=== PATIENT | male | born 1960 | race Caucasian/White ===

== ENCOUNTER 2016-09-10 12:17 | Inpatient (IN) ==
[2016-09-10 13:39] LABS: Basophils % 0.6 % (0.0-0.8); Eosinophils # 0.1 10*3/uL (0.0-0.87); Eosinophils % 2.3 % (0.00-10.9); Hematocrit 45.5 VOL% (42.0-52.0); Hemoglobin 16.7 GM/DL (14.0-18.0); Immature Granulocytes % 0.6 %; Immature Granulocytes Absolute 0.03 #; Lymphocytes # 0.9 10*3/uL (1.4-4.0); Mean Corpuscular HGB Conc 36.7 GM/DL (32-36); Mean Corpuscular Hemoglobin 33 PG (27-34); Mean Corpuscular Volume 90.5 FL (87-102); Mean Platelet Volume 11.1 FL (9.6-12.0); Monocytes # 0.7 10*3/uL (0.11-0.8); Monocytes % 12.9 % (1.7-12.7); Neutrophils # 3.5 10*3/uL (1.4-7.4); Neutrophils % 66.6 % (38.7-73.9); Platelet Count 159 T/CUMM (130-400); Red Blood Count 5.03 MC/CUMM (3.8-5.5); Red Cell Distribution Width 13.5 % (9.3-17.3); White Blood Count 5.2 T/CUMM (4-12)
[2016-09-10 13:40] LABS: Ammonia 40 UMOL/L (11-32)
[2016-09-10 13:44] LABS: Alanine Aminotransferase 644 U/L (16-61); Albumin 4.1 G/DL (3.4-5.0); Alkaline Phosphatase 324 U/L (45-117); Aspartate Amino Transferase 359 U/L (0-37); Blood Urea Nitrogen 12 MG/DL (7-18); Calcium 9.1 MG/DL (8.5-10.1); Glucose 167 MG/DL (74-106); Lactic Acid 2.6 MMOL/L (0.4-2.0); Potassium 4.1 MMOL/L (3.5-5.1); Sodium 136 MMOL/L (136-145); Total Protein 6.9 G/DL (6.4-8.3); Troponin I Only < 0.015 NG/ML (0.00-0.045)
--- NOTE | 2016-09-10 14:07 | Ultrasound Report ---
US gallbladder Indication: Epigastric pain. Jaundice. ULTRASOUND ABDOMEN, limited Comparison: None Findings: Liver: Diffusely echogenic and contour are normal size. No focal lesion identified. Focal fat sparing adjacent to gallbladder noted. Gallbladder: Mobile multiple gallstones and sludge fill the gallbladder lumen, and the wall is edematous and thickened. Positive sonographic Weber sign. Common bile duct: 5 mm Pancreas: Majority obscured by bowel gas Right kidney: 12.7 cm length. No mass, cyst, calcification or obstruction Impression: 1. Cholelithiasis with secondary findings of cholecystitis. 2. Fatty infiltration of the liver. PROCEDURE INTERPRETED AT [facility] DEPARTMENT OF RADIOLOGY Final Report Signed by: Scott Rowland M.D.
--- NOTE | 2016-09-10 14:08 | XRay Report ---
XR chest 1V portable Indication: Epigastric abdominal pain. Chest one view: No comparison. Heart size is normal. Mediastinal contour is unremarkable. Right hemidiaphragm is elevated. There is mild atelectasis. No focal infiltrates. Impression: Elevated right hemidiaphragm with atelectasis. PROCEDURE INTERPRETED AT [facility] DEPARTMENT OF RADIOLOGY Final Report Signed by: Scott Rowland M.D.
[2016-09-10 14:13] LABS: INR 1.1; PT Patient Result 11.2 SECS; Partial Thromboplastin Time 27.1 SECS (0-40)
[2016-09-10] MEDS ORDERED: ALUM/MAG/SIMETH/LIDO VISC 1:1 30 ML BOTTLE PO STA (17:33)
[2016-09-10] MEDS ORDERED: MORPHINE 2 MG/1 ML SYRINGE IV PRN (17:33)
[2016-09-10] MEDS ORDERED: SODIUM CHLORIDE 0.9% 1,000 ML IV STA ×2 (17:33)
[2016-09-10] MEDS ORDERED: ONDANSETRON 4 MG/2 ML VIAL IV PRN (17:33)
[2016-09-10] MEDS: DEXTROSE 5% NACL 0.9% 1,000 ML IV SCH (18:29)
[2016-09-10] MEDS: PANTOPRAZOLE 40 MG VIAL IV SCH (18:29)
[2016-09-10] MEDS: PIPERACILLIN/TAZOBACTAM 3,375 MG in SODIUM CHLORIDE 0.9% 100 ML IV SCH (18:37)
--- NOTE | 2016-09-10 19:36 | General Surgery Consult Note ---
Assessment and Plan - Time spent with patient Time spent with patient: Less than 30 minutes (1) Gall stone pancreatitis Status: Acute Assessment and plan: Impression: 1. Gallstone pancreatitis 2. Obstructive jaundice secondary to choledocholithiasis. 3. Cholecystitis with cholelithiasis. 4. Hypertension. Plan: 1. IV fluids and IV antibiotics at this time. 2. Get a CT scan abdomen and pelvis be sure there is nothing going on in the head of pancreas 3. Will get GI to see for the purpose of an ERCP 4. Plan and hope to be able to remove the gallbladder laparoscopically if we can get the duct is cleared. Current Visit: Yes History of Present Illness Chief complaint: Pancreatitis with jaundice History of present illness: Mr. Benitez is a 56 year old male white who presents to the emergency room because of a weeklong episode of abdominal pain primarily epigastric in nature this is her of a constant ache. At the onset last week and this one did not seem to improve quickly like the episode he had about 2 months ago. He denies any fatty food intolerance but certainly noted that this episode occurred after he is what he describes as spicy food. He has had no unusual problems or other symptoms with this stomach over time. Came to the emergency room where he was found to have a bilirubin of 10 and an lipase of 700. He has stones on his gallbladder on ultrasound at this time. He is admitted his gallstone pancreatitis with common duct obstruction and choledocholithiasis. We will look at getting GI to see him for an ERCP. Following the ERCP we can set him up for a laparoscopic cholecystectomy. Home Medications Medication Instructions Recorded Confirmed Type Losartan Potassium 100 mg PO DAILY 09/10/16 09/10/16 History Metoprolol Succinate Xl [Toprol Xl] 50 mg PO BID 09/10/16 09/10/16 History amLODIPine [Norvasc] 5 mg PO BEDTIME 09/10/16 09/10/16 History clonazePAM [Clonazepam] 1 mg PO BID PRN 09/10/16 09/10/16 History hydroCHLOROthiazide 25 mg PO DAILY 09/10/16 09/10/16 History [Hydrochlorothiazide] Allergies Allergy/AdvReac Type Severity Reaction Status Date / Time No Known Allergies Allergy Verified 09/10/16 12:22 Medical,Surgical,& Family Hx - Medical History Cardio: History of: Hypertension Psychological: History of: Anxiety Disorders Gastrointestinal: History of: GERD - Social History Smoking Status: Never smoker Frequency of Alcohol Use: None Type of Drug Use: None Functional capacity: independent ambulation 12 point system: reviewed and no additional remarkable complaints except as stated Exam - Constitutional Vitals: Period Temp Pulse Resp BP Sys/Phillips Pulse Ox Last 24 Hr 97.4 F 94-98 16-18 108-112/74-82 95-98 General appearance: mild distress - Head Head exam: Present: normal inspection - ENT ENT exam: Present: normal exam - Neck Neck exam: Present: normal inspection - Respiratory Respiratory exam: Present: clear to auscultation bilaterally - Cardiovascular Cardiovascular exam: Present: RRR - GI/Abdominal GI/Abdominal exam: Present: hypoactive bowel sounds, tenderness (In the epigastrium right upper quadrant area.), soft, other (Scar at the umbilicus where hernia repair had been done). Absent: distended, mass - Extremities Exam Extremities exam: Present: normal inspection - Back Exam Back exam: Present: normal inspection - Neurological Exam Neurological exam: Present: alert, oriented X3, CN II-XII intact - Skin Skin exam: Present: normal color, warm, dry Results - Labs CBC & BMP: 09/10/16 13:07 09/10/16 13:07 Lab Results: I have reviewed the past 24 hour labs
[2016-09-10] MEDS: DOCUSATE SODIUM 100 MG CAPSULE PO SCH (20:49)
[2016-09-10] MEDS: METOPROLOL SUCCINATE XL 50 MG TABLET PO SCH (20:49)
[2016-09-10] MEDS: amLODIPine 5 MG TABLET PO SCH (20:49)
[2016-09-11] MEDS: PIPERACILLIN/TAZOBACTAM 3,375 MG in SODIUM CHLORIDE 0.9% 100 ML IV SCH ×3 (02:03→17:34)
[2016-09-11 04:11] LABS: Basophils % 0.5 % (0.0-0.8); Eosinophils # 0.2 10*3/uL (0.0-0.87); Eosinophils % 2.4 % (0.00-10.9); Hematocrit 40.7 VOL% (42.0-52.0); Hemoglobin 14.9 GM/DL (14.0-18.0); Immature Granulocytes % 0.3 %; Immature Granulocytes Absolute 0.02 #; Mean Corpuscular HGB Conc 36.6 GM/DL (32-36); Mean Corpuscular Hemoglobin 33 PG (27-34); Mean Corpuscular Volume 91.1 FL (87-102); Mean Platelet Volume 11.1 FL (9.6-12.0); Monocytes # 0.8 10*3/uL (0.11-0.8); Monocytes % 12.1 % (1.7-12.7); Neutrophils # 4.4 10*3/uL (1.4-7.4); Neutrophils % 68.7 % (38.7-73.9); Platelet Count 122 T/CUMM (130-400); Red Blood Count 4.47 MC/CUMM (3.8-5.5); Red Cell Distribution Width 13.7 % (9.3-17.3); White Blood Count 6.4 T/CUMM (4-12)
[2016-09-11 04:28] LABS: INR 1.1; PT Patient Result 11.2 SECS; Partial Thromboplastin Time 27.3 SECS (0-40)
[2016-09-11 05:01] LABS: Albumin 3.5 G/DL (3.4-5.0); Bilirubin,Total 10.9 MG/DL (0.2-1.0); Calcium 8.6 MG/DL (8.5-10.1); Osmolality,Calculated 277.5 MOS/KG (273-304); Potassium 2.9 MMOL/L (3.5-5.1); Total Protein 5.8 G/DL (6.4-8.3)
--- NOTE | 2016-09-11 07:37 | Family Practice History&Phys ---
Assessment and Plan (1) Gallstones Status: Acute Assessment and plan: 09/11/2016: Dr. Fajardo's been consulted. Current Visit: Yes (2) Gall stone pancreatitis Status: Acute Assessment and plan: 09/11/2016: GI will be consulted for ERCP. Current Visit: Yes History of Present Illness Chief complaint: Abdominal pain History of present illness: Mr. Benitez is a 56 year old male Patient 56-year-old white male tells me he has been having some abdominal pain off and on for the last several weeks. He is noticed that he has a lot of belching and feeling nauseated after meals. He started 2 days ago he started developing increasing abdominal pain and finally decided need to come to the emergency room. He has not had any fever or chills associated with this and has not seen any blood in his stools or melena. Patient did notice that his urine was turning dark and also noticed that his skin was turning yellow. He has never had anything like this before. Home Medications Medication Instructions Recorded Confirmed Type Losartan Potassium 100 mg PO DAILY 09/10/16 09/10/16 History Metoprolol Succinate Xl [Toprol Xl] 50 mg PO BID 09/10/16 09/10/16 History amLODIPine [Norvasc] 5 mg PO BEDTIME 09/10/16 09/10/16 History clonazePAM [Clonazepam] 1 mg PO BID PRN 09/10/16 09/10/16 History hydroCHLOROthiazide 25 mg PO DAILY 09/10/16 09/10/16 History [Hydrochlorothiazide] Allergies Allergy/AdvReac Type Severity Reaction Status Date / Time No Known Allergies Allergy Verified 09/10/16 12:22 - Constitutional Constitutional: Absent: chills, fatigue, fever(s), night sweats - EENT Eyes: Absent: blurry vision, loss of vision Ears: Absent: decreased hearing, ear pain Nose, mouth and throat: Absent: dysphagia, hoarseness, nasal congestion, sinus pressure, sore throat - Cardiovascular Cardiovascular: Absent: chest pain at rest, diaphoresis, dyspnea, dyspnea on exertion, orthopnea, palpitations - Respiratory Respiratory: Absent: cough, dyspnea, dyspnea on exertion - Gastrointestinal Gastrointestinal: Present: abdominal pain, bloating, nausea, vomiting. Absent: diarrhea, dyspepsia, dysphagia, heartburn, melena - Genitourinary Genitourinary: Absent: dysuria, flank pain, hematuria, urinary frequency - Musculoskeletal Musculoskeletal: Absent: arthralgias, back pain, joint swelling - Neurological Neurological: Absent: confusion, dizziness, focal weakness, numbness, paresthesias - Psychiatric Psychiatric: Absent: anxiety, confusion - Endocrine Endocrine: Absent: fatigue, polydipsia, polyphagia - Hematologic/Lymphatic Hematologic/Lymphatic: Absent: easy bleeding, easy bruising Medical,Surgical,& Family Hx - Medical History Cardio: History of: Hypertension Psychological: History of: Anxiety Disorders Gastrointestinal: History of: GERD - Surgical History Surgical History: noncontributory - Family History Family History: noncontributory - Social History Smoking Status: Never smoker Frequency of Alcohol Use: None Type of Drug Use: None Exam - Constitutional Vitals: Period Temp Pulse Resp BP Sys/Phillips Pulse Ox Last 24 Hr 97.4 F-98.9 F 81-98 16-20 105-112/55-82 95-99 Exam: General: Objective patient is a well-developed white male in no acute distress. Patient is noted to be deeply jaundiced. He is able to give an excellent history. He states he feels better this morning than he did yesterday. HEENT: Pupils equal and reactive to light. Patent nares and airway Neck: No meningismus, adenopathy, thyromegaly. There are no auscultated carotid bruits. Cardiovascular: Regular rhythm. No murmurs or gallops Chest: Clear to auscultation without rales rhonchi wheezes. Abdomen: Abdomen is soft but slightly distended. Is noted to have tenderness across his upper abdomen bilaterally. There is no rebound or guarding.. Neuro: Cranial nerves intact and DTRs and strength symmetric in all extremities. Dermatologic: No evidence of abnormal lesions or masses. Musculoskeletal: There is no joint swelling or tenderness or deformity. Extremities: There is no calf swelling or tenderness. Results - Labs CBC & BMP: 09/11/16 03:02 09/11/16 03:02 Lab Results: I have reviewed the past 24 hour labs
--- NOTE | 2016-09-11 09:09 | CT Report ---
CT abdomen pelvis w con Indication: Gallstone pancreatitis. Jaundice. CT ABDOMEN AND PELVIS WITH CONTRAST DLP: 1598 mGy*cm. One or more of the following dose reduction techniques was used: Automated exposure control, adjustment of the mA and/or kV according the patient size, or use of iterative reconstruction techniques. Comparison: Ultrasound abdomen from yesterday Technique: Axial CT images of the abdomen and pelvis were obtained with IV contrast; Omnipaque 350, 100 cc. Oral contrast was administered. Abdomen: The pancreas is unremarkable without pancreatic duct dilatation or peripancreatic inflammation. No intrahepatic duct dilatation seen. Common hepatic duct is 5 mm diameter, and the common bile duct 6 mm at the head of the pancreas. Calcified gallstones fill the gallbladder lumen. Minimal gallbladder wall thickening is present but no pericholecystic fluid or inflammation. Spleen, adrenal glands and kidneys are unremarkable. Normal heart size. Clear lung bases. No bowel obstruction. Normal-sized appendix without inflammation. Obesity. Calcified atheromatous disease of the aorta. No aneurysm. Pelvis: Urinary bladder, prostate and rectosigmoid colon are grossly unremarkable. No free fluid, free air or lymphadenopathy. Mild degenerative changes lumbar spine. Impression: 1. Calcified cholelithiasis, corroborating findings on yesterday's ultrasound. No intrahepatic or extrahepatic duct dilatation. 2. No peripancreatic inflammation. PROCEDURE INTERPRETED AT [facility] DEPARTMENT OF RADIOLOGY Final Report Signed by: Scott Rowland M.D.
[2016-09-11] MEDS: METOPROLOL SUCCINATE XL 50 MG TABLET PO SCH ×2 (09:15→21:50)
[2016-09-11] MEDS: LOSARTAN 50 MG TABLET PO SCH (09:16)
[2016-09-11] MEDS: hydroCHLOROthiazide 12.5 MG CAPSULE PO SCH (09:17)
[2016-09-11] MEDS: DOCUSATE SODIUM 100 MG CAPSULE PO SCH ×2 (09:19→21:50)
--- NOTE | 2016-09-11 09:22 | EKG Report ---
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
[2016-09-11] MEDS: PANTOPRAZOLE 40 MG VIAL IV SCH (09:34)
--- NOTE | 2016-09-11 09:54 | General Surgery Progress Note ---
Assessment and Plan - Time spent with patient Time spent with patient: Less than 30 minutes (1) Gall stone pancreatitis Status: Acute Assessment and plan: Impression: 1. Gallstone pancreatitis 2. Obstructive jaundice secondary to choledocholithiasis. 3. Cholecystitis with cholelithiasis. 4. Hypertension. Plan: 1. IV fluids and IV antibiotics at this time. 2. Get a CT scan abdomen and pelvis be sure there is nothing going on in the head of pancreas 3. Will get GI to see for the purpose of an ERCP 4. Plan and hope to be able to remove the gallbladder laparoscopically if we can get the duct is cleared. 09/11/2016. Patient remains afebrile at this time but continues to have little epigastric discomfort with some mild guarding. He has had no nausea or vomiting at this point. Lipase remains elevated but CT scan the abdomen pelvis did not show any unusual inflammation of the pancreas. Bilirubin has improved since come down at this time along with some improvement of the liver function studies. Waiting on GI for an ERCP on him for planning any surgery at this time. Current Visit: Yes Subjective Patient reports: Present: still having pain, no bowel movement, afebrile. Absent: nausea Exam - Constitutional Vitals: Period Temp Pulse Resp BP Sys/Phillips Pulse Ox Last 24 Hr 97.4 F-98.9 F 81-98 16-20 105-123/55-82 95-99 General appearance: mild distress - Head Head exam: Present: normal inspection - ENT ENT exam: Present: normal exam - Neck Neck exam: Present: normal inspection - Respiratory Respiratory exam: Present: clear to auscultation bilaterally, rales - Cardiovascular Cardiovascular exam: Present: RRR - GI/Abdominal GI/Abdominal exam: Present: hypoactive bowel sounds, tenderness (Still about the epigastric area), soft - Extremities Exam Extremities exam: Present: normal inspection - Neurological Exam Neurological exam: Present: alert, oriented X3, CN II-XII intact - Skin Skin exam: Present: normal color, warm, dry Results - Labs CBC & BMP: 09/11/16 03:02 09/11/16 03:02 Lab Results: I have reviewed the past 24 hour labs - Diagnostic Findings Procedure: CT Abdomen and Pelvis: report reviewed by me (Pancreas looks okay at this time and still has some changes about the gallbladder.)
[2016-09-11] MEDS: POTASSIUM CHLORIDE INJ 40 MEQ in DEXTROSE 5% NACL 0.9% 1,000 ML IV SCH (12:06)
[2016-09-11] MEDS: DEXTROSE 5% NACL 0.9% 1,000 ML IV SCH ×2 (12:18→12:19)
[2016-09-11] MEDS ORDERED: HYDROmorphone 2 MG/1 ML VIAL IV PRN (15:23)
--- NOTE | 2016-09-11 15:40 | Gastrointestinal Consult Note ---
Assessment and Plan (1) Jaundice with stoppage of bile flow Status: Acute Assessment and plan: I am not completely sure why there is not more dilation of the biliary tree and either ultrasound or CT scan of the fact that this may be so acute that is not produce this ductal dilatation has not yet had a chance to develop. His bilirubin up to 19 is certainly impressive but that this is also come down to 10 in a single day speaks to the fact that it may be more sludge related than stones. In either event, ERCP with possible sphincterotomy is an excellent idea to clear the duct prior to going to surgery hopefully the following day. Unfortunately I do not do ERCP myself and so we will have Dr. Joel Santana see this patient early tomorrow to evaluate for the procedure. Risks of the procedure were reviewed with the patient and include but are not limited to: Bleeding, infection, perforation, cardiac and pulmonary compromise as well as worsening pancreatitis which occurs in 15% of patients as a result of ERCP. He seems to understand the procedure and the risks involved and is willing to proceed. Current Visit: Yes (2) Abnormal findings on radiological examination of gastrointestinal tract Status: Acute Assessment and plan: This refers to the lack of pancreatic inflammation on CT scan as well as the lack of ductal dilatation on CT and ultrasound but the fact that gallstones are present as is gallbladder wall thickening. 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 I will go ahead and write for the procedure tomorrow pending Dr. Santana's evaluation in the morning time as mentioned above. Plans should be made to take patient to surgery shortly after the ERCP is completed, although the sphincterotomy should afford him some measure of protection against recurrence of sludge. I am going to take the patient off of morphine which stimulates the gallbladder to contract as this will certainly add to further sludge impissation in the common bile duct. Current Visit: Yes (3) Gall stone pancreatitis Status: Acute Assessment and plan: Elevations of the patient's lipase level into the 700 range, patient CT scan fails to show any gross evidence of pancreatitis but I suspect this was caused by the transient blockage of the pancreatic duct at the level of the ampulla. It is likely improved with passage of sludge. Current Visit: Yes History of Present Illness Chief complaint: Cholecystitis with likely choledocholithiasis, bili 19-->10, gallstones History of present illness: Mr. 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 He has had on-and-off problems with epigastric pain radiating from his right upper quadrant since July 2016 , he thinks that this is his fourth episode although this was much more intense than previous episodes up to this point. He is always been able to belch and get rid in the epigastric pain and thinks that his current pain has been present since 1 week ago on Monday but this last 4 days ago the patient started turning yellow. He is urine started turning dark like [employer] yesterday and he elected to come in for evaluation as the pain that was initially starting in his right upper quadrant was no quite severe radiating up into his epigastric region. This did have a slight reflux type sound to it but he is also developing nausea without vomiting, he has mild diarrhea in addition. He was noted yesterday on laboratories to have a bilirubin of 19.7 despite the fact that he does not drink at all. He does not have a history of tattoos, blood transfusions, IV drug abuse, or foreign travel either. ALT and AST were also elevated to 644 and 359 respectively. Alkaline phosphatase was less impressive at 324. His ammonia level was only slightly elevated at 40 with a lipase level that was also slightly high at 724. These laboratories have come down over the last 24 hours particularly the bilirubin which is gone down to 10.9. AST is dropped to 164 with an ALT that is dropped to 435 and alkaline phosphatase also down at 243 over period of one day. Initial ultrasound yesterday shows cholelithiasis with secondary findings of cholecystitis with wall edema/thickening. Fatty infiltration is noted of the liver. He did have a positive sonographic Weber sign, surprisingly his common bile duct only measured 5 mm, but he was noted to have multiple gallstones and sludge filling the gallbladder lumen. A follow-up CT scan done 09/10/16 demonstrated no intra-or extrahepatic ductal dilatation and no peripancreatic inflammation, fortunately. He feels good deal better and is not having any significant pain on deep palpation of the right upper quadrant or epigastric region. Dr. Fajardo would like his common bile duct assessed before proceeding with surgery to remove the gallbladder. Given the previous bilirubin of 19, this is not unreasonable. He is not really having any fevers or chills. On Pipracil and his white blood cell count is coming down to 6.4 with a normal INR and a low potassium at 2.9--we will need to correct this prior to ERCP. Home Medications Medication Instructions Recorded Confirmed Type Losartan Potassium 100 mg PO DAILY 09/10/16 09/10/16 History Metoprolol Succinate Xl [Toprol Xl] 50 mg PO BID 09/10/16 09/10/16 History amLODIPine [Norvasc] 5 mg PO BEDTIME 09/10/16 09/10/16 History clonazePAM [Clonazepam] 1 mg PO BID PRN 09/10/16 09/10/16 History hydroCHLOROthiazide 25 mg PO DAILY 09/10/16 09/10/16 History [Hydrochlorothiazide] Allergies Allergy/AdvReac Type Severity Reaction Status Date / Time No Known Allergies Allergy Verified 09/10/16 12:22 Medical,Surgical,& Family Hx - Medical History Cardio: History of: Hypertension Psychological: History of: Anxiety Disorders Gastrointestinal: History of: GERD - Social History Smoking Status: Never smoker Frequency of Alcohol Use: None Type of Drug Use: None Review of systems: Constitutional: Denies fever, chills, nausea, and vomiting Eyes: Denies dry eyes, and gross scleral icterus, also yellow hue to his skin HENT: Denies headaches Cardiovascular: Patient does have some mild acute chest pain but no claudication Respiratory: Denies shortness of breath, wheezing, and difficulty breathing, denies cough Gastrointestinal: As noted in the HPI Genitourinary: Denies dysuria and hematuria Neurologic: Denies vision loss, and loss of sensation Musculoskeletal: Denies joint swelling, joint stiffness, and muscular weakness Psychiatric: Denies depression and eddi symptoms Heme-Lymph: Denies easy bruising, lymph node enlargement or tenderness, night sweats, excessive bleeding Allergies-immunologic: He does have some pruritus but no rhinorrhea Exam - Constitutional Vitals: Period Temp Pulse Resp BP Sys/Phillips Pulse Ox Last 24 Hr 97.4 F-98.9 F 80-98 16-20 105-123/55-82 95-99 General appearance: normal weight Exam: Constitutional: Well-developed, well-nourished, alert, and in no acute distress--he is grossly jaundiced Head and face: Head: Normocephalic atraumatic Eyes: Conjunctiva without injection, with gross scleral icterus, pupils equal and round bilaterally Ears: Intact to conversation in both ears Nose: External appearance is normal, nares patent Mouth: Oral mucous membranes moist without erythema dentition noted to be without erosion Neck: Normal appearance, no masses or tenderness, trachea midline Thyroid: Gland midline and appropriate size for age Respiratory: Normal respiratory effort, clear to auscultation without wheezes, rhonchi or rales Cardiovascular: Regular rate and rhythm, normal S1, S2, the exam is without rubs, murmurs or gallops. Gastrointestinal: Very mildly tender to deep palpation in the epigastric region, normal active bowel sounds, tone normal without rigidity or guarding, no masses present, no hepatomegaly, no spleen tip felt. Good tone on rectal exam but no blood seen on guaiac staining. Lymphatic: Neck without adenopathy, axilla without lymphadenopathy present Musculoskeletal: Right and left lower extremities without evidence of edema Skin and subcutaneous tissue: Gross evidence of jaundice seen but no rashes or ulcerations noted, normal skin turgor, digits and nails without clubbing/ cyanosis/deformities. Neurologic: The patient is grossly oriented to person place and time, cranial nerves show tongue movements are normal with normal tongue extrusion midline, light touch sensation is intact. Psychiatric: No hallucinations or delusions are present, does not appear depressed Results - Labs CBC & BMP: 09/11/16 03:02 09/11/16 03:02
[2016-09-11] MEDS: POTASSIUM CHLORIDE 20 MEQ TABLET PO SCH (21:50)
[2016-09-11] MEDS: amLODIPine 5 MG TABLET PO SCH (21:50)
[2016-09-12] MEDS: PIPERACILLIN/TAZOBACTAM 3,375 MG in SODIUM CHLORIDE 0.9% 100 ML IV SCH ×3 (00:54→17:38)
[2016-09-12 06:02] LABS: Basophils % 0.2 % (0.0-0.8); Eosinophils # 0.1 10*3/uL (0.0-0.87); Eosinophils % 1.1 % (0.00-10.9); Hematocrit 43.7 VOL% (42.0-52.0); Hemoglobin 14.8 GM/DL (14.0-18.0); Immature Granulocytes % 0.3 %; Immature Granulocytes Absolute 0.03 #; Lymphocytes # 0.9 10*3/uL (1.4-4.0); Lymphocytes % 8.7 % (21.2-54.2); Mean Corpuscular HGB Conc 33.9 GM/DL (32-36); Mean Corpuscular Hemoglobin 33 PG (27-34); Mean Platelet Volume 10.5 FL (9.6-12.0); Monocytes # 0.9 10*3/uL (0.11-0.8); Monocytes % 8.3 % (1.7-12.7); Neutrophils # 8.7 10*3/uL (1.4-7.4); Neutrophils % 81.4 % (38.7-73.9); Platelet Count 150 T/CUMM (130-400); Red Blood Count 4.46 MC/CUMM (3.8-5.5); Red Cell Distribution Width 14.1 % (9.3-17.3); White Blood Count 10.7 T/CUMM (4-12)
[2016-09-12 06:36] LABS: Albumin 3.4 G/DL (3.4-5.0); Bilirubin,Total 6.9 MG/DL (0.2-1.0); Calcium 8.3 MG/DL (8.5-10.1); Osmolality,Calculated 284.1 MOS/KG (273-304); Potassium 3.3 MMOL/L (3.5-5.1); Total Protein 6.3 G/DL (6.4-8.3)
--- NOTE | 2016-09-12 08:34 | General Surgery Progress Note ---
Assessment and Plan - Time spent with patient Time spent with patient: Less than 30 minutes (1) Gall stone pancreatitis Status: Acute Assessment and plan: Impression: 1. Gallstone pancreatitis 2. Obstructive jaundice secondary to choledocholithiasis. 3. Cholecystitis with cholelithiasis. 4. Hypertension. Plan: 1. IV fluids and IV antibiotics at this time. 2. Get a CT scan abdomen and pelvis be sure there is nothing going on in the head of pancreas 3. Will get GI to see for the purpose of an ERCP 4. Plan and hope to be able to remove the gallbladder laparoscopically if we can get the duct is cleared. 09/11/2016. Patient remains afebrile at this time but continues to have little epigastric discomfort with some mild guarding. He has had no nausea or vomiting at this point. Lipase remains elevated but CT scan the abdomen pelvis did not show any unusual inflammation of the pancreas. Bilirubin has improved since come down at this time along with some improvement of the liver function studies. Waiting on GI for an ERCP on him for planning any surgery at this time. 09/12/2016 0830 hrs. Patient remains afebrile but continues to have a little soreness and discomfort in the epigastric area. Liver function studies and bilirubin have continued to come down. Unfortunately the lipase is continued to rise. Were hoping to get an ERCP today in hope to clear the duct so that we can plan his surgery on his gallbladder. He is a rather impatient individual about getting something done but I tried to reassure him that this is the course we need to go in order to ensure that we hopefully can do all this laparoscopically. Current Visit: Yes Subjective Patient reports: Present: no new complaints, pain is less, no bowel movement, afebrile Exam - Constitutional Vitals: Period Temp Pulse Resp BP Sys/Phillips Pulse Ox Last 24 Hr 97.9 F-99.7 F 76-99 18-20 100-135/56-73 95-98 General appearance: mild distress - Head Head exam: Present: normal inspection - ENT ENT exam: Present: normal exam - Neck Neck exam: Present: normal inspection - Respiratory Respiratory exam: Present: clear to auscultation bilaterally, rales - Cardiovascular Cardiovascular exam: Present: RRR - GI/Abdominal GI/Abdominal exam: Present: hypoactive bowel sounds, tenderness (Less tenderness epigastric area), soft. Absent: distended - Extremities Exam Extremities exam: Present: normal inspection - Neurological Exam Neurological exam: Present: alert, oriented X3, CN II-XII intact - Skin Skin exam: Present: normal color, warm, dry Results - Labs CBC & BMP: 09/12/16 05:21 09/12/16 05:21 Lab Results: I have reviewed the past 24 hour labs
[2016-09-12] MEDS: PANTOPRAZOLE 40 MG VIAL IV SCH (09:36)
[2016-09-12] MEDS: POTASSIUM CHLORIDE RIDER 10 MEQ in PREMIX 1 EACH IV SCH ×2 (09:36→10:40)
[2016-09-12] MEDS: POTASSIUM CHLORIDE INJ 40 MEQ in DEXTROSE 5% NACL 0.9% 1,000 ML IV SCH ×2 (10:40→17:38)
[2016-09-12] MEDS ORDERED: fentaNYL 100 MCG/2 ML VIAL ONE (12:11)
--- NOTE | 2016-09-12 12:41 | History and Physical Update ---
History and Physical Update - Physical Exam Mental Status: alert and oriented Heart: regular rate and rhythm Lung: clear to auscultation Abdomen: within normal limits Vitals: within normal limits
[2016-09-12] MEDS ORDERED: LIDOCAINE 1% 5 ML VIAL ONE (12:43)
[2016-09-12] MEDS ORDERED: PROPOFOL 200 MG/20 ML VIAL IV ONE (12:43)
--- NOTE | 2016-09-12 12:43 | Operative Note ---
Date of procedure: 09/12/16 Pre-op diagnosis: Gallstone pancreatitis Procedure: Endoscopic retrograde cholangiopancreatography with sphincterotomy and balloon stone extraction 56-year-old gentleman admitted with gallstone pancreatitis multiple stones seen on ultrasound and suspicion for choledocholithiasis. Now for ERCP to further evaluate. Informed consent was obtained for the patient. He was sedated with MAC anesthesia per anesthesia protocol. Patient placed in a prone position the Olympus flexible video duodenal scope inserted lower cavity under direct vision the esophagus was intubated. Findings esophagus stomach pylorus duodenum appeared normal. The ampulla is grossly normal. The cannulatome was utilized pancreatic duct revealed a normal pancreatic duct to the head body tail the pancreas. Subsequently selective cannulation of common bile duct was performed. He does not have significant dilatation of his biliary tree. Cystic duct is patent multiple stones are seen within the cystic duct and in the gallbladder. There is some refractive debris noted in the distal soft bile duct. It was elected to proceed with sphincterotomy 8 mm sphincterotomy was performed without difficulty good hemostasis. Subsequently a balloon catheter was positioned at the pollo hepatis 3 and inflated to 10 mm of brought in the duodenum with removal of what appears to be some biliary sludge material that is brown in in coloration consistent with suspected common duct stone. The procedure was subsequently terminated. Patient was discharged recovery in good condition Postop diagnosis: 1. Gallstone pancreatitis-continue current treatment 2. Choledocholithiasis-status post successful ERCP with sphincterotomy 3. Cholelithiasis-proceed with cholecystectomy per Dr. Jaqeuz Anesthesia: MAC Surgeon / Physician: Joel Santana Estimated blood loss: none Specimens: none sent Condition: stable Disposition: post procedure unit Results - Labs CBC & BMP: 09/12/16 05:21 09/12/16 11:01 Discharge Plan - Discharge Medications No Action Losartan Potassium 100 mg PO DAILY hydroCHLOROthiazide [Hydrochlorothiazide] 25 mg PO DAILY clonazePAM [Clonazepam] 1 mg PO BID PRN PRN Reason: Anxiety amLODIPine [Norvasc] 5 mg PO BEDTIME Metoprolol Succinate Xl [Toprol Xl] 50 mg PO BID - Follow Up or Referral - Forms/Instructions
--- NOTE | 2016-09-12 12:48 | Anesthesia ---
Anesthesia Post OP - Post Ansesthetic Evaluation Patient seen in post op: Yes Resp: within normal limits CV: within normal limits Mental: within normal limits Temp: within normal limits [id number]: within normal limits Nausea and Vomiting: within normal limits Pain: within normal limits
--- NOTE | 2016-09-12 13:45 | Fluoroscopy Report ---
Referring Physician: Joel Santana MD Exam: FL ERCP with sphincterotomy Date: September 12, 2016 Reason: Jaundice, gallstones Comparison: CT abdomen and pelvis February 11, 2017 Findings: 9 images of the abdomen were provided after performance of the procedure. Fluoroscopy time was 3 minutes, and 20 cc of Omnipaque 240 contrast was used. Images demonstrate normal caliber bile ducts and a normal caliber pancreatic duct. A balloon sweep was performed. No definite biliary duct stone or stricture is identified. Impression: Images are presumed satisfactory for the purposes of the procedure. PROCEDURE INTERPRETED AT [facility] DEPARTMENT OF RADIOLOGY Final Report Signed by: Dr. Roxanna Oconnor
[2016-09-12] MEDS: DOCUSATE SODIUM 100 MG CAPSULE PO SCH ×2 (14:08→20:44)
[2016-09-12] MEDS: METOPROLOL SUCCINATE XL 50 MG TABLET PO SCH ×2 (14:08→20:44)
[2016-09-12] MEDS: LOSARTAN 50 MG TABLET PO SCH (14:08)
[2016-09-12] MEDS: hydroCHLOROthiazide 12.5 MG CAPSULE PO SCH (14:09)
[2016-09-12] MEDS: clonazePAM 0.5 MG TABLET PO PRN (14:09)
[2016-09-12] MEDS: POTASSIUM CHLORIDE 20 MEQ TABLET PO SCH ×3 (14:13→20:44)
[2016-09-12] MEDS: amLODIPine 5 MG TABLET PO SCH (20:44)
[2016-09-13] MEDS: POTASSIUM CHLORIDE INJ 40 MEQ in DEXTROSE 5% NACL 0.9% 1,000 ML IV SCH (04:36)
[2016-09-13] MEDS: PIPERACILLIN/TAZOBACTAM 3,375 MG in SODIUM CHLORIDE 0.9% 100 ML IV SCH ×3 (04:37→17:32)
[2016-09-13] MEDS ORDERED: LORazepam 1 MG TABLET PO ONE (06:00)
[2016-09-13] MEDS ORDERED: FAMOTIDINE 20 MG TABLET PO ONE (06:00)
[2016-09-13 06:30] LABS: Basophils % 0.2 % (0.0-0.8); Eosinophils # 0.1 10*3/uL (0.0-0.87); Eosinophils % 1.5 % (0.00-10.9); Hemoglobin 13.5 GM/DL (14.0-18.0); Immature Granulocytes % 0.5 %; Immature Granulocytes Absolute 0.05 #; Lymphocytes # 0.8 10*3/uL (1.4-4.0); Lymphocytes % 8.5 % (21.2-54.2); Mean Corpuscular HGB Conc 34.6 GM/DL (32-36); Mean Corpuscular Hemoglobin 34 PG (27-34); Mean Platelet Volume 10.4 FL (9.6-12.0); Monocytes # 0.8 10*3/uL (0.11-0.8); Neutrophils # 7.4 10*3/uL (1.4-7.4); Neutrophils % 80.3 % (38.7-73.9); Platelet Count 122 T/CUMM (130-400); Red Blood Count 4.02 MC/CUMM (3.8-5.5); Red Cell Distribution Width 13.5 % (9.3-17.3); White Blood Count 9.2 T/CUMM (4-12)
--- NOTE | 2016-09-13 06:56 | Gastrointestinal Progress Note ---
Assessment and Plan (1) Jaundice with stoppage of bile flow Status: Acute Assessment and plan: I am not completely sure why there is not more dilation of the biliary tree and either ultrasound or CT scan of the fact that this may be so acute that is not produce this ductal dilatation has not yet had a chance to develop. His bilirubin up to 19 is certainly impressive but that this is also come down to 10 in a single day speaks to the fact that it may be more sludge related than stones. In either event, ERCP with possible sphincterotomy is an excellent idea to clear the duct prior to going to surgery hopefully the following day. Unfortunately I do not do ERCP myself and so we will have Dr. Joel Santana see this patient early tomorrow to evaluate for the procedure. Risks of the procedure were reviewed with the patient and include but are not limited to: Bleeding, infection, perforation, cardiac and pulmonary compromise as well as worsening pancreatitis which occurs in 15% of patients as a result of ERCP. He seems to understand the procedure and the risks involved and is willing to proceed. 09/13/16--the patient had ERCP done by Dr. Santana yesterday and is awaiting cholecystectomy by Dr. Fajardo today. Appreciate their help with this patient. Anticipate that if things go well with his surgery today should be able to go home tomorrow. Liver function tests and lipase level written to be done tomorrow, lipase level is slightly elevated today 1892, not unusual considering the dye load he got yesterday. He is not feeling any additional pain and actually looks quite good. He is still mildly jaundiced. Dr. Fajardo will likely do an intraoperative cholangiogram today to check the duct one last time. Current Visit: Yes (2) Abnormal findings on radiological examination of gastrointestinal tract Status: Acute Assessment and plan: This refers to the lack of pancreatic inflammation on CT scan as well as the lack of ductal dilatation on CT and ultrasound but the fact that gallstones are present as is gallbladder wall thickening. 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 I will go ahead and write for the procedure tomorrow pending Dr. Santana's evaluation in the morning time as mentioned above. Plans should be made to take patient to surgery shortly after the ERCP is completed, although the sphincterotomy should afford him some measure of protection against recurrence of sludge. I am going to take the patient off of morphine which stimulates the gallbladder to contract as this will certainly add to further sludge impissation in the common bile duct. 09/13/16--Patient doing adequately, see note above. Current Visit: Yes (3) Gall stone pancreatitis Status: Acute Assessment and plan: Elevations of the patient's lipase level into the 700 range, patient CT scan fails to show any gross evidence of pancreatitis but I suspect this was caused by the transient blockage of the pancreatic duct at the level of the ampulla. It is likely improved with passage of sludge. 09/13/16--Increased lipase level without increased pain, currently up to 1893 from the 700s, I am not surprised this is occurred since there was likely some stimulation of the pancreas with the dye during the ERCP. We will watch clinically. Current Visit: Yes Gastroenterology - PN: Subj Interval history: Patient is doing great this morning status post ERCP done by my partner Dr. Santana yesterday. He has less abdominal pain and is up walking around waiting for his cholecystectomy to be done by Dr. Fajardo. ERCP did not show ductal dilatation but did demonstrate a great deal of common bile duct sludge and at least one stone upon balloon dredging of the duct. Sphincterotomy was performed which should allow for emptying of the duct post cholecystectomy, in case any additional sludge is lost during the procedure. Patient looks better today and is less jaundiced but his eyes are still yellow. Exam (Progress Note) - Constitutional Vitals: Period Temp Pulse Resp BP Sys/Phillips Pulse Ox Last 24 Hr 98.0 F-99.3 F 76-120 16-20 99-139/48-090 95-99 General appearance: no acute distress - Eye Eye exam: Present: EOMI, scleral icterus - Respiratory Respiratory exam: Present: clear to auscultation bilaterally - Cardiovascular Cardiovascular exam: Absent: regular rate and rhythm - GI/Abdominal GI/Abdominal exam: Present: normal bowel sounds, soft. Absent: distended, tenderness, rebound - Extremities Exam Extremities exam: Present: normal inspection - Neurological Exam Neurological exam: Present: alert, oriented X3 - Psychiatric Psychiatric exam: Present: normal affect, normal mood - Skin Skin exam: Present: warm Results - Labs CBC & BMP: 09/13/16 05:48 09/12/16 11:01
[2016-09-13] MEDS ORDERED: ceFAZolin 2,000 MG in PREMIX 1 EACH IV ONE (07:00)
[2016-09-13 07:42] LABS: Bilirubin,Total 12.1 MG/DL (0.2-1.0); Calcium 8.2 MG/DL (8.5-10.1); Osmolality,Calculated 278.4 MOS/KG (273-304); Potassium 3.7 MMOL/L (3.5-5.1); Total Protein 5.5 G/DL (6.4-8.3)
[2016-09-13] MEDS: PANTOPRAZOLE 40 MG VIAL IV SCH (08:48)
[2016-09-13] MEDS ORDERED: BUPIVACAINE MPF 0.25% /EPI 30 ML VIAL ONE (11:13)
[2016-09-13] MEDS ORDERED: TISSUE ADHESIVE 1 EACH APPLICATOR TOP ONE (11:13)
[2016-09-13] MEDS: clonazePAM 0.5 MG TABLET PO PRN ×2 (11:36→15:38)
[2016-09-13] MEDS ORDERED: LIDOCAINE 1% 5 ML VIAL ONE (12:20)
[2016-09-13] MEDS ORDERED: SUCCINYLCHOLINE 200 MG/10 ML VIAL ONE (12:20)
[2016-09-13] MEDS ORDERED: KETOROLAC 30 MG/1 ML VIAL ONE (12:20)
[2016-09-13] MEDS ORDERED: PHENYLEPHRINE 1 MG/10 ML SYRINGE IV ONE (12:20)
[2016-09-13] MEDS ORDERED: ROCURONIUM 100 MG/10 ML VIAL IV ONE (12:20)
[2016-09-13] MEDS ORDERED: PROPOFOL 200 MG/20 ML VIAL IV ONE (12:20)
[2016-09-13] MEDS ORDERED: GLYCOPYRROLATE 0.4 MG/2 ML VIAL ONE (12:20)
[2016-09-13] MEDS ORDERED: NEOSTIGMINE 10 MG/10 ML VIAL ONE (12:20)
[2016-09-13] MEDS ORDERED: ONDANSETRON 4 MG/2 ML VIAL ONE (12:20)
--- NOTE | 2016-09-13 12:30 | Family Practice Progress Note ---
Family Practice - PN: Subj Interval history: Patient has gone to surgery for cholecystectomy by Dr. Fajardo. He still jaundiced note that his bilirubin was still elevated this morning. There has been no more nausea or vomiting. I have asked Dr. Daisha Covarrubias to see Mr. Benitez in Dr. Landaverde's absence. Hopefully surgery will go well he can go home tomorrow. Exam (Progress Note) - Constitutional Vitals: Period Temp Pulse Resp BP Sys/Phillips Pulse Ox Last 24 Hr 98.0 F-98.7 F 76-127 16-20 99-139/48-84 95-99 Results - Labs CBC & BMP: 09/13/16 05:48 09/13/16 05:47 Assessment and Plan (1) Gallstones Status: Acute Assessment and plan: 09/11/2016: Dr. Fajardo's been consulted. 09/13/2016: Patient is presently in the operating room for cholecystectomy. Current Visit: Yes (2) Gall stone pancreatitis Status: Acute Assessment and plan: 09/11/2016: GI will be consulted for ERCP. 09/13/2016: Patient's lipase is reduced from yesterday. Current Visit: Yes
[2016-09-13] MEDS ORDERED: DEXT 5% NACL 0.9% KCL 40 MEQ 40 MEQ/1,000 ML BAG IV SCH (12:52)
--- NOTE | 2016-09-13 13:14 | Event Note ---
Patient in the operating room for cholecystectomy. Uneventful night reporting for the nursing staff and his mother is in his room. Dr. Young is following this patient during his perioperative period. Call if I can be of assistance.
[2016-09-13] MEDS ORDERED: ACETAMINOPHEN 325 MG TABLET PO PRN (14:07)
[2016-09-13] MEDS ORDERED: HYDROmorphone 2 MG/1 ML VIAL IV PRN (14:07)
[2016-09-13] MEDS ORDERED: ONDANSETRON 4 MG/2 ML VIAL IV PRN (14:07)
--- NOTE | 2016-09-13 14:18 | Operative Note ---
Date of procedure: 09/13/16 Pre-op diagnosis: Gallstone pancreatitis Post-op diagnosis: same Procedure: Operative note: Preoperative diagnosis: Gallstone pancreatitis with jaundice secondary to choledocholithiasis. Postoperative diagnosis: Same Procedure: Laparoscopic cholecystectomy with intraoperative cholangiogram. Surgeon Dr. Fajardo Anesthesia General endotracheal with local Brief history: 56-year-old white male who comes in with jaundice and elevated liver function studies with a bilirubin of 10. He also had a elevation of his lipase is. His liver function studies and bilirubin begin to come down the lipase did rise little bit. He underwent an ERCP with a sphincterotomy basically described as not showing any stones in the duct at this time. He does have cholecystitis with some cholelithiasis present at this point. With the ERCP completed we like to bring surgery at this time with gallbladder out. Procedure: With patient supine position prepped and draped in a sterile fashion timeout and antibiotics completed we approach the abdomen. His large rotund type abdomen he has had an umbilical hernia repair above this umbilicus at this time we do not have a record and he does not know with the use mesh or not. That point I felt his best to go below the umbilicus so we infiltrated with local anesthetic and made an incision through the skin subcutaneous tissue. This dissected down to the fascia and then we incised the fascia with a knife and then carefully dissected on an open fashion to enter the peritoneal cavity under direct vision. Placed a 11 mm trocar and at this site and filled the abdomen with 3 L of CO2. With the scope and then we could tell there was adhesions just above us at this point probably related to this hernia repair. I was able to swing to the left and get around the adhesions and come up to the upper part of the abdomen. Once I could see a clear window they are went ahead and placed a 5 mm trocar at the anterior axillary one in the midclavicular line all in direct vision. At that point I was able to grasp the falciform ligament and placed another 11 mm trocar and under direct vision. I then took a little bit of time and took down some adhesions of the Gilbert a window for the lower trocar. At that point I was able to go ahead and put him in upright tilted left side position. With the position then I was able to pull the omentum down and see the dome of the gallbladder which is grayish and pale and thickened at this time. I was able to grasp around an elevated up and dissected adhesions from the underside down to the infundibulum. I grabbed the infundibulum elevated that up and did careful dissection until I can easily identify the cystic duct. Placed a clip on it proximally and him a little cut into it and would put a cholangiocatheter and clipped in place. C arm came up we did multiple x-rays showing that were in the cystic duct upper radicles look normal good flow into the duodenum with no stones seen at this time. With that completed we removed the Cholangiocath and placed 3 clips across the distal part of the cystic duct and we divided it. There was careful dissection we identified the cystic artery placed 3 clips on approximately 1 distally and divided it. I next begin to dissected out the gallbladder by incising peritoneal attachments anteriorly and posteriorly and using sharp and blunt dissection to dissect the gallbladder out of the liver bed. Wheeze light cauterization as we went Prolene bleeding at this time. Unfortunately we had a tear in the gallbladder we had a good bit of spillage of dark greenish thick bile with some stones that we had to suck from time to time to get control of things. Once a gallbladder was free we placed an Endo Catch bag that we pulled out through the umbilical port. I next went back in and in washed copious amounts of saline above and below the liver to clean up all the spillage that we had in any stones that we can suck out at this time to get everything under control and clean. We washed a good bit look at the liver bed it was dry at this time. We did as clean as I could possibly get it and we pulled her trocar sites. I went back to the epigastric port closed that fascia down with interrupted 0 Monocryl suture. I then went to the umbilical port and closed the fascia layer with interrupted 0 Monocryl suture. We then cleaned out the subtenons tissue areas and closed the skin with skin clips. Dressings were applied and the patient was taken to recovery room. Estimated blood loss 30 cc Sponge count correct 2 Drains none Complications none Condition stable satisfactory Anesthesia: GETA, local (0.25% Marcaine with epinephrine mixed [id number] 1% Xylocaine plain and the trocar sites) Surgeon / Physician: Jimmy Fajardo Estimated blood loss: other (20 cc) Specimens: other (Gallbladder) Condition: stable Disposition: floor Results - Labs CBC & BMP: 09/13/16 05:48 09/13/16 05:47 Discharge Plan - Discharge Medications No Action Losartan Potassium 100 mg PO DAILY hydroCHLOROthiazide [Hydrochlorothiazide] 25 mg PO DAILY clonazePAM [Clonazepam] 1 mg PO BID PRN PRN Reason: Anxiety amLODIPine [Norvasc] 5 mg PO BEDTIME Metoprolol Succinate Xl [Toprol Xl] 50 mg PO BID - Follow Up or Referral - Forms/Instructions
[2016-09-13] MEDS ORDERED: DESFLURANE 1 UNIT/15 MINUTE INH ONE (14:24)
[2016-09-13] MEDS ORDERED: ACETAMINOPHEN 1,000 MG/100 ML VIAL IV ONE (14:24)
[2016-09-13] MEDS ORDERED: fentaNYL 100 MCG/2 ML VIAL ONE (14:24)
[2016-09-13] MEDS ORDERED: MIDAZOLAM 2 MG/2 ML VIAL ONE (14:24)
[2016-09-13] MEDS ORDERED: LACTATED RINGERS 1,000 ML IV ONE (14:24)
[2016-09-13] MEDS ORDERED: clonazePAM 0.5 MG TABLET PO PRN (15:33)
[2016-09-13] MEDS: DOCUSATE SODIUM 100 MG CAPSULE PO SCH ×2 (15:39→20:42)
[2016-09-13] MEDS: LOSARTAN 50 MG TABLET PO SCH (15:39)
[2016-09-13] MEDS: POTASSIUM CHLORIDE 20 MEQ TABLET PO SCH ×2 (15:39→15:41)
[2016-09-13] MEDS: METOPROLOL SUCCINATE XL 50 MG TABLET PO SCH ×2 (15:40→20:43)
[2016-09-13] MEDS: KETOROLAC 15 MG/1 ML VIAL IV SCH ×2 (15:43→20:36)
[2016-09-13] MEDS: hydroCHLOROthiazide 12.5 MG CAPSULE PO SCH (15:46)
[2016-09-13] MEDS: DEXTROSE 5% NACL 0.45% 1,000 ML IV SCH (15:49)
[2016-09-13 16:51] LABS: Hematocrit 37.8 VOL% (42.0-52.0); Hemoglobin 12.6 GM/DL (14.0-18.0)
[2016-09-13] MEDS: ceFAZolin 2,000 MG in PREMIX 1 EACH IV SCH (19:47)
[2016-09-13] MEDS: amLODIPine 5 MG TABLET PO SCH (20:42)
[2016-09-13] MEDS ORDERED: METOPROLOL SUCCINATE XL 100 MG TABLET PO SCH (21:00)
[2016-09-13] MEDS ORDERED: amLODIPine 5 MG TABLET PO SCH (21:00)
[2016-09-14] MEDS: PIPERACILLIN/TAZOBACTAM 3,375 MG in SODIUM CHLORIDE 0.9% 100 ML IV SCH ×3 (00:51→18:28)
[2016-09-14] MEDS: KETOROLAC 15 MG/1 ML VIAL IV SCH ×4 (04:52→21:53)
[2016-09-14] MEDS: ceFAZolin 2,000 MG in PREMIX 1 EACH IV SCH (04:54)
[2016-09-14 07:09] LABS: Basophils % 0.3 % (0.0-0.8); Eosinophils # 0.3 10*3/uL (0.0-0.87); Eosinophils % 5.3 % (0.00-10.9); Hematocrit 35.1 VOL% (42.0-52.0); Hemoglobin 11.7 GM/DL (14.0-18.0); Immature Granulocytes % 0.3 %; Immature Granulocytes Absolute 0.02 #; Lymphocytes # 0.7 10*3/uL (1.4-4.0); Lymphocytes % 12.1 % (21.2-54.2); Mean Corpuscular HGB Conc 33.3 GM/DL (32-36); Mean Corpuscular Hemoglobin 33 PG (27-34); Mean Corpuscular Volume 99.4 FL (87-102); Mean Platelet Volume 10.7 FL (9.6-12.0); Monocytes # 0.4 10*3/uL (0.11-0.8); Monocytes % 7.2 % (1.7-12.7); Neutrophils # 4.4 10*3/uL (1.4-7.4); Neutrophils % 74.8 % (38.7-73.9); Platelet Count 124 T/CUMM (130-400); Red Blood Count 3.53 MC/CUMM (3.8-5.5); Red Cell Distribution Width 13.9 % (9.3-17.3); White Blood Count 5.9 T/CUMM (4-12)
--- NOTE | 2016-09-14 07:11 | Fluoroscopy Report ---
Referring Physician: Jimmy Fajardo Exam: [place] cholangiogram in surgery Date: September 13, 2016 Reason: Generalized abdominal pain Comparison: CT abdomen and pelvis September 11, 2016, ERCP September 12, 2016 Findings: 5 images of the abdomen were provided after performance of the procedure. Fluoroscopy time was 45.2 seconds. Normal caliber bile ducts are seen. There is no convincing evidence of a biliary stone or stricture. Impression: Images are presumed satisfactory for the purposes of the procedure. PROCEDURE INTERPRETED AT [facility] DEPARTMENT OF RADIOLOGY Final Report Signed by: Dr. Roxanna Oconnor
--- NOTE | 2016-09-14 07:18 | Gastrointestinal Progress Note ---
Assessment and Plan (1) Jaundice with stoppage of bile flow Status: Acute Assessment and plan: I am not completely sure why there is not more dilation of the biliary tree and either ultrasound or CT scan of the fact that this may be so acute that is not produce this ductal dilatation has not yet had a chance to develop. His bilirubin up to 19 is certainly impressive but that this is also come down to 10 in a single day speaks to the fact that it may be more sludge related than stones. In either event, ERCP with possible sphincterotomy is an excellent idea to clear the duct prior to going to surgery hopefully the following day. Unfortunately I do not do ERCP myself and so we will have Dr. Joel Santana see this patient early tomorrow to evaluate for the procedure. Risks of the procedure were reviewed with the patient and include but are not limited to: Bleeding, infection, perforation, cardiac and pulmonary compromise as well as worsening pancreatitis which occurs in 15% of patients as a result of ERCP. He seems to understand the procedure and the risks involved and is willing to proceed. 09/13/16--the patient had ERCP done by Dr. Santana yesterday and is awaiting cholecystectomy by Dr. Fajardo today. Appreciate their help with this patient. Anticipate that if things go well with his surgery today should be able to go home tomorrow. Liver function tests and lipase level written to be done tomorrow, lipase level is slightly elevated today 189, not unusual considering the dye load he got yesterday. He is not feeling any additional pain and actually looks quite good. He is still mildly jaundiced. Dr. Fajardo will likely do an intraoperative cholangiogram today to check the duct one last time. 09/14/16--the patient had previous ERCP done by Dr. Santana on 09/12/16 and cholecystectomy 09/13/[address] Fajardo. Angiocath used to once again observe the dye was flowing freely through the biliary tree into the duodenum during cholecystectomy. Bilirubin increased from 6.9-->12.1 despite these 2 procedures. Today's bilirubin is elevated which may be due to 1 of 3 things: Trauma from the sphincterotomy potentially resulting in transient obstruction which should improve as the inflammation goes down, unlikely missed stones or sludge which may be obstructing the common bile duct transiently, or reaction to the antibiotics with elevation in bilirubin which would be unusual. Suggest observation for another day to see if these levels are improving prior to discharge home. Possible MRCP to look at duct if the bilirubin continues to rise tomorrow. Current Visit: Yes (2) Abnormal findings on radiological examination of gastrointestinal tract Status: Acute Assessment and plan: This refers to the lack of pancreatic inflammation on CT scan as well as the lack of ductal dilatation on CT and ultrasound but the fact that gallstones are present as is gallbladder wall thickening. 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 I will go ahead and write for the procedure tomorrow pending Dr. Santana's evaluation in the morning time as mentioned above. Plans should be made to take patient to surgery shortly after the ERCP is completed, although the sphincterotomy should afford him some measure of protection against recurrence of sludge. I am going to take the patient off of morphine which stimulates the gallbladder to contract as this will certainly add to further sludge impissation in the common bile duct. 09/13/16--Patient doing adequately, see note above. 09/14/16--as noted above bilirubin increasing and another day of observation suggested. Current Visit: Yes (3) Gall stone pancreatitis Status: Acute Assessment and plan: Elevations of the patient's lipase level into the 700 range, patient CT scan fails to show any gross evidence of pancreatitis but I suspect this was caused by the transient blockage of the pancreatic duct at the level of the ampulla. It is likely improved with passage of sludge. 09/13/16--Increased lipase level without increased pain, currently up to 1893 from the 700s, I am not surprised this is occurred since there was likely some stimulation of the pancreas with the dye during the ERCP. We will watch clinically. 09/14/16--Patient's lipase level peaked yesterday and is coming back down to the 700s at this time. Continued observation. Current Visit: Yes Gastroenterology - PN: Subj Interval history: Note from Dr. Fajardo seen from yesterday's operation. Angiocath used to once again observe the dye was flowing freely through the biliary tree into the duodenum. Despite this today's bilirubin is elevated which may be due to 1 of 3 things: Trauma from the sphincterotomy potentially resulting in transient obstruction which should improve as the inflammation goes down, unlikely missed stones or sludge which may be obstructing the common bile duct transiently, versus reaction to the antibiotics with elevation in bilirubin which would be unusual. Suggest observation for another day to see if these levels are improving. The patient's pain is about 4 out of 10 just lying in bed and goes up to an 8 out of 10 when he is up and walking around. He is not having fevers or chills, he states that his urine is actually becoming clear (less bilious brown). Exam (Progress Note) - Constitutional Vitals: Period Temp Pulse Resp BP Sys/Phillips Pulse Ox Last 24 Hr 97.4 F-98.7 F 89-127 11-22 99-121/57-77 93-100 General appearance: no acute distress - Head Head exam: Present: normocephalic, atraumatic - Eye Eye exam: Present: EOMI, scleral icterus - Respiratory Respiratory exam: Present: clear to auscultation bilaterally - Cardiovascular Cardiovascular exam: Present: regular rate and rhythm - GI/Abdominal GI/Abdominal exam: Present: normal bowel sounds, soft. Absent: distended, guarding, tenderness, rebound - Extremities Exam Extremities exam: Absent: edema - Neurological Exam Neurological exam: Present: alert, oriented X3 - Psychiatric Psychiatric exam: Present: normal affect, normal mood - Skin Skin exam: Present: warm Results - Labs CBC & BMP: 09/14/16 06:44 09/13/16 05:47
[2016-09-14 07:42] LABS: Albumin 2.5 G/DL (3.4-5.0); Bilirubin,Direct 2.9 MG/DL (0.0-0.20); Bilirubin,Indirect 0.8 MG/DL (0.0-1.0); Bilirubin,Total 3.7 MG/DL (0.2-1.0); Total Protein 5.1 G/DL (6.4-8.3)
[2016-09-14 07:44] LABS: Albumin 2.6 G/DL (3.4-5.0); Osmolality,Calculated 277.5 MOS/KG (273-304); Potassium 4.3 MMOL/L (3.5-5.1)
[2016-09-14] MEDS: DEXTROSE 5% NACL 0.45% 1,000 ML IV SCH (08:27)
[2016-09-14] MEDS: DOCUSATE SODIUM 100 MG CAPSULE PO SCH ×2 (08:29→21:52)
[2016-09-14] MEDS: LOSARTAN 50 MG TABLET PO SCH (08:30)
[2016-09-14] MEDS: METOPROLOL SUCCINATE XL 50 MG TABLET PO SCH ×2 (08:30→21:52)
[2016-09-14] MEDS: clonazePAM 0.5 MG TABLET PO PRN (08:30)
[2016-09-14] MEDS: PANTOPRAZOLE 40 MG TABLET PO SCH (08:30)
[2016-09-14] MEDS: hydroCHLOROthiazide 12.5 MG CAPSULE PO SCH (08:30)
[2016-09-14] MEDS: ENOXAPARIN 40 MG/0.4 ML SYRINGE SUBCUT SCH (08:31)
[2016-09-14] MEDS ORDERED: LOSARTAN 50 MG TABLET PO SCH (09:00)
[2016-09-14] MEDS ORDERED: hydroCHLOROthiazide 25 MG TABLET PO SCH (09:00)
--- NOTE | 2016-09-14 09:43 | General Surgery Progress Note ---
Assessment and Plan - Time spent with patient Time spent with patient: Less than 30 minutes (1) Gall stone pancreatitis Status: Acute Assessment and plan: Impression: 1. Gallstone pancreatitis 2. Obstructive jaundice secondary to choledocholithiasis. 3. Cholecystitis with cholelithiasis. 4. Hypertension. Plan: 1. IV fluids and IV antibiotics at this time. 2. Get a CT scan abdomen and pelvis be sure there is nothing going on in the head of pancreas 3. Will get GI to see for the purpose of an ERCP 4. Plan and hope to be able to remove the gallbladder laparoscopically if we can get the duct is cleared. 09/11/2016. Patient remains afebrile at this time but continues to have little epigastric discomfort with some mild guarding. He has had no nausea or vomiting at this point. Lipase remains elevated but CT scan the abdomen pelvis did not show any unusual inflammation of the pancreas. Bilirubin has improved since come down at this time along with some improvement of the liver function studies. Waiting on GI for an ERCP on him for planning any surgery at this time. 09/12/2016 0830 hrs. Patient remains afebrile but continues to have a little soreness and discomfort in the epigastric area. Liver function studies and bilirubin have continued to come down. Unfortunately the lipase is continued to rise. Were hoping to get an ERCP today in hope to clear the duct so that we can plan his surgery on his gallbladder. He is a rather impatient individual about getting something done but I tried to reassure him that this is the course we need to go in order to ensure that we hopefully can do all this laparoscopically. 09/14/2016 Patient is doing well postop and has a moderate amount discomfort about the incisional sites and the epigastric area as expected. He is tolerated his diet this morning and bowel sounds are hypoactive. Labs look good with hematocrit 37 bilirubin is down to 3 and his lipase is back to normal. He is doing well since he lives alone I have encouraged him to get up and walk today the length of his house and that he may shower and get taught how to take care of his incisions. I would think that if he does well today with probably send him home tomorrow without any problems. Current Visit: Yes Subjective Patient reports: Present: no new complaints, pain is less, tolerating a regular diet, no bowel movement, afebrile Exam - Constitutional Vitals: Period Temp Pulse Resp BP Sys/Phillips Pulse Ox Last 24 Hr 97.4 F-98.7 F 89-108 11-22 99-121/57-77 93-100 General appearance: no acute distress - Head Head exam: Present: normal inspection - ENT ENT exam: Present: normal exam - Neck Neck exam: Present: normal inspection - Respiratory Respiratory exam: Present: clear to auscultation bilaterally, rales - Cardiovascular Cardiovascular exam: Present: RRR - GI/Abdominal GI/Abdominal exam: Present: hypoactive bowel sounds, tenderness (About the incisions), soft. Absent: distended - Extremities Exam Extremities exam: Present: normal inspection - Back Exam Back exam: Present: normal inspection - Neurological Exam Neurological exam: Present: alert, oriented X3, CN II-XII intact - Skin Skin exam: Present: normal color, warm, dry Results - Labs CBC & BMP: 09/14/16 06:44 09/14/16 06:44 Lab Results: I have reviewed the past 24 hour labs
--- NOTE | 2016-09-14 11:25 | Pathology Report from [facility] ---
ACCESSION # : [id number] PATIENT NAME : Jimmy Piper ORDERING DR : JIMMY MANTILLA MD CLINICAL HX: Cholecystitis POST-OP DX: Same SPECIMEN INFO: Gallbladder GROSS DESCRIPTION: The specimen is received in formalin labeled with the patient 's name and consists of a focally opened gallbladder measuring 7.5 x 3.7 cm. The serosa is glistening, conn and fatty. The wall averages 0.2 cm in thickness. The mucosa is granular light brown. The lumen contains black stones and stone fragments collectively measuring 2.0 x 1.5 cm. Manager Export sections submitted in one cassette. DIAGNOSIS FOR JIMMY PIPER: GALLBLADDER, CHOLECYSTECTOMY: Chronic cholecystitis. Cholelithiasis. SERVICE DATE: 09/13/2016 REPORT DATE: 09/14/2016 PATHOLOGIST: Elgin Rice M.D. [facility]
--- NOTE | 2016-09-14 18:30 | Internal Med Progress Note ---
Assessment and Plan (1) Acute gastroenteritis Status: Acute Current Visit: Yes (2) Abnormal liver enzymes Status: Acute Current Visit: Yes (3) Cholecystitis Status: Acute Current Visit: Yes (4) Gall stone pancreatitis Status: Acute Current Visit: Yes (5) Renal insufficiency Status: Acute Current Visit: Yes (6) Status post cholecystectomy Status: Acute Current Visit: Yes Internal Medicine - PN: Subj Interval history: This is a 56 year old male status post cholecystectomy per Dr. Fajardo, acute pancreatitis, abnormal liver enzymes, history of HTN, acid reflux, who is feeling better after surgery and soon to be discharged. Liver enzymes are trending down. Exam (Progress Note) - Constitutional Vitals: Period Temp Pulse Resp BP Sys/Phillips Pulse Ox Last 24 Hr 97.4 F-98.4 F 71-96 18-20 99-130/64-81 96-99 General appearance: no acute distress - Head Head exam: Present: normocephalic - Eye Eye exam: Present: EOMI - Respiratory Respiratory exam: Present: clear to auscultation bilaterally - Cardiovascular Cardiovascular exam: Present: regular rate and rhythm - GI/Abdominal GI/Abdominal exam: Present: soft. Absent: tenderness - Extremities Exam Extremities exam: Absent: edema - Neurological Exam Neurological exam: Present: alert, oriented X3, CN II-XII intact - Psychiatric Psychiatric exam: Present: normal affect, normal mood - Skin Skin exam: Present: warm, dry Results - Labs CBC & BMP: 09/14/16 06:44 09/14/16 06:44 - EKG EKG shows: sinus rhythm - Diagnostic Findings Procedure: Chest x-ray: report reviewed by me, CT Abdomen and Pelvis: report reviewed by me, Ultrasound: report reviewed by me
[2016-09-14] MEDS: amLODIPine 5 MG TABLET PO SCH (21:52)
[2016-09-15] MEDS: PIPERACILLIN/TAZOBACTAM 3,375 MG in SODIUM CHLORIDE 0.9% 100 ML IV SCH ×2 (01:17→09:41)
[2016-09-15] MEDS: KETOROLAC 15 MG/1 ML VIAL IV SCH ×2 (03:40→09:05)
[2016-09-15 06:05] LABS: Basophils % 0.7 % (0.0-0.8); Eosinophils # 0.4 10*3/uL (0.0-0.87); Eosinophils % 8.5 % (0.00-10.9); Hematocrit 37.9 VOL% (42.0-52.0); Hemoglobin 12.5 GM/DL (14.0-18.0); Immature Granulocytes % 0.5 %; Immature Granulocytes Absolute 0.02 #; Lymphocytes # 0.9 10*3/uL (1.4-4.0); Lymphocytes % 19.5 % (21.2-54.2); Mean Corpuscular Hemoglobin 33 PG (27-34); Mean Corpuscular Volume 100.3 FL (87-102); Monocytes # 0.4 10*3/uL (0.11-0.8); Monocytes % 9.6 % (1.7-12.7); Neutrophils # 2.7 10*3/uL (1.4-7.4); Neutrophils % 61.2 % (38.7-73.9); Platelet Count 148 T/CUMM (130-400); Red Blood Count 3.78 MC/CUMM (3.8-5.5); Red Cell Distribution Width 13.2 % (9.3-17.3); White Blood Count 4.4 T/CUMM (4-12)
[2016-09-15 06:46] LABS: Albumin 2.7 G/DL (3.4-5.0); Calcium 8.1 MG/DL (8.5-10.1); Magnesium 2.1 MG/DL (1.8-2.4); Osmolality,Calculated 281.3 MOS/KG (273-304); Potassium 3.9 MMOL/L (3.5-5.1); Total Protein 5.4 G/DL (6.4-8.3)
--- NOTE | 2016-09-15 08:28 | Discharge Summary ---
Hospital Course - Hospital Course Hospital Course: Discharge summary: Discharge diagnosis: Gallstone pancreatitis Jaundice secondary to choledocholithiasis Procedure: ERCP per Dr. Santana Laparoscopic cholecystectomy with cholangiogram per Dr. Fajardo Brief summary: 56-year-old white male who was admitted because of jaundice up to a bilirubin of 19 elevated liver function studies. Ultrasound showed some stones CT scan showed no changes in the pancreas at this time. His lipase was also elevated and would slowly rise her next couple days. He was put on IV antibiotics and on the first of the week underwent an ERCP with sphincterotomy. This cleared the duct at that point in the next day he was taken to surgery where he underwent a laparoscopic cholecystectomy with cholangiogram that look normal. Postoperatively he has done fairly well his bilirubins are now down to 2 liver function studies are better with the Ben posterior O slightly elevated. Lipases are back to normal. Patient is eating well and tolerating his diet and able to take care of his wounds well. At this point will plan to go ahead and discharge him and follow him up in the office couple weeks. - Time spent with patient Time with patient DS: Less than 30 minutes Diagnosis - Discharge Diagnosis (1) Gall stone pancreatitis Status: Resolved Specialty Discharge - Follow Up or Referrals Follow up with: Jimmy Fajardo MD [Physician] - 09/26/16 - Speciality Discharge Instructions Surgery Instructions: 1. Patient should shower daily and change the dressings and keep a clean dry dressing over the incisions. 2. No driving until he comes to see us in 10 days. 3. No heavy lifting or straining. 4. May ride in a car and going downstairs. 5. Laxative of choice for constipation. 6. Drink plenty of fluids and can stay on sort of a low-fat diet for now Discharge Plan - Discharge Data Disposition: Disch To Home/Self Care Condition at Discharge: Stable Discharge Diet: advance to your usual diet Activity: increase activity as tolerated, no lifting Hygiene: may shower Weight Bearing at Discharge: full weight bearing Driving: not for (1 week) Contact your physician if you experience:: fever over 101, Redness or swelling, Nausea/Vomiting, Shortness of breath, Bleeding, pain uncontrolled by pain medications Wound / Dressing Care Instructions: Wound care daily to the abdominal incisions. 1. May shower and use soap of choice. 2. Try incisions well after showering. 3. Cover the incisions with large Band-Aids - Discharge Medications New Acetaminophen Tab [Tylenol Tab] 650 mg PO Q6H PRN #0 tablet PRN Reason: Pain Mild (1-3) HYDROcodone/ACETAMIN 7.5-325 [[place] 7.5-325] 1 tablet PO Q6H PRN #30 tablet PRN Reason: Pain Moderate (4-7) Losartan [Cozaar] 100 mg PO DAILY tablet Metoprolol Succinate Xl [Toprol Xl] 50 mg PO BID tablet clonazePAM TAB [KlonoPIN] 1 mg PO BID PRN #0 tablet PRN Reason: Anxiety hydroCHLOROthiazide [Hydrochlorothiazide] 25 mg PO DAILY capsule amLODIPine [Norvasc] 5 mg PO BEDTIME tablet Continue Losartan Potassium 100 mg PO DAILY hydroCHLOROthiazide [Hydrochlorothiazide] 25 mg PO DAILY clonazePAM [Clonazepam] 1 mg PO BID PRN PRN Reason: Anxiety amLODIPine [Norvasc] 5 mg PO BEDTIME Metoprolol Succinate Xl [Toprol Xl] 50 mg PO BID - Follow Up or Referral - Forms/Instructions Exam - Constitutional Vitals: Period Temp Pulse Resp BP Sys/Phillips Pulse Ox Last 24 Hr 97.7 F-98.1 F 66-90 20-20 101-135/57-83 93-98 General appearance: no acute distress - Head Head exam: Present: normal inspection - ENT ENT exam: Present: normal exam - Neck Neck exam: Present: normal inspection - Respiratory Respiratory exam: Present: clear to auscultation bilaterally - Cardiovascular Cardiovascular exam: Present: regular rate and rhythm - GI/Abdominal GI/Abdominal exam: Present: hypoactive bowel sounds, tenderness (About the trocar sites look clean and dry.), soft. Absent: distended - Extremities Exam Extremities exam: Present: normal inspection - Back Exam Back exam: Present: normal inspection - Neurological Exam Neurological exam: Present: alert, oriented X3, CN II-XII intact - Psychiatric Psychiatric exam: Present: normal affect, normal mood - Skin Skin exam: Present: normal color, warm, dry Discharge Results Labs on day of discharge: Labs from last 24 hours 09/15/16 09/15/16 09/15/16 04:48 04:48 04:48 WBC 4.4 RBC 3.78 L Hgb 12.5 L Hct 37.9 L MCV 100.3 MCH 33 MCHC 33.0 RDW 13.2 Plt Count 148 MPV 11.0 Neut % (Auto) 61.2 Lymph % (Auto) 19.5 L [place] % (Auto) 9.6 Eos % (Auto) 8.5 Baso % (Auto) 0.7 Neut # (Auto) 2.7 Lymph # (Auto) 0.9 L [place] # (Auto) 0.4 Eos # (Auto) 0.4 Baso # (Auto) 0.0 Immature Gran % 0.5 Nucleated RBC % 0.0 Immature Gran # 0.02 Nucleated RBCs # 0.00 Sodium 141 Potassium 3.9 Chloride 103 Carbon Dioxide 30 Anion Gap 11.9 BUN 17 Creatinine 1.20 GFR Calculation 89 BUN/Creatinine Ratio 14.00 Glucose 80 POC Glucose Calculated Osmolality 281.3 Calcium 8.1 L Magnesium 2.1 Total Bilirubin 3.00 H Direct Bilirubin 2.10 H AST 41 H ALT 118 H Alkaline Phosphatase 242 H Total Protein 5.4 L Albumin 2.7 L Globulin 2.7 Albumin/Globulin Ratio 1.0 L Lipase 358.0 D 09/14/16 10:36 WBC RBC Hgb Hct MCV MCH MCHC RDW Plt Count MPV Neut % (Auto) Lymph % (Auto) [place] % (Auto) Eos % (Auto) Baso % (Auto) Neut # (Auto) Lymph # (Auto) [place] # (Auto) Eos # (Auto) Baso # (Auto) Immature Gran % Nucleated RBC % Immature Gran # Nucleated RBCs # Sodium Potassium Chloride Carbon Dioxide Anion Gap BUN Creatinine GFR Calculation BUN/Creatinine Ratio Glucose POC Glucose 149 H Calculated Osmolality Calcium Magnesium Total Bilirubin Direct Bilirubin AST ALT Alkaline Phosphatase Total Protein Albumin Globulin Albumin/Globulin Ratio Lipase DS: Provider Date of admission: 09/10/16 15:00 Primary care physician: . No PCP Attending physician on admission: Alfredo Landaverde DO Consults: 09/10/16 17:33 Consult to Case Mgmt/Social Srvs [CONS] Routine Reason for Case Mgmt/Social Srvs: Discharge Planning Consult to Physician [CONS] Routine Comment: Consulting Provider: Jimmy Fajardo Person Notified: Dr. Fajardo Date Notified: 09/10/16 Time Notified: 17:23 09/10/16 17:38 Consult to Dietitian [CONS] Routine Reason for Dietitian: Dietary Consult 09/10/16 17:41 Consult to Pastoral Services [CONS] Routine Comment: Pastoral Screen: Request General Engineering Teacher Visit Pastoral Screen Source of Request: Patient 09/10/16 17:45 Consult to Pharmacy [CONS] Routine Reason for Pharmacy Consult: Adjust Meds Renal Funct 09/10/16 19:31 Consult to Physician [CONS] Routine Comment: Consulting Provider: Max Young Consult to Specialist Group: Gastroenterology When should Consulting Provider be notified: In am Person Notified: Dr. Young Date Notified: 09/11/16 Time Notified: 14:08 Consult Notification Comment: pt with gall stone pancreatitis and jaundice. Please evaluate for ERCP 09/11/16 15:19 Consult to Physician [CONS] Routine Comment: ERCP in jaudiced pt. 19-->10 bili, stones Consulting Provider: Joel Santana Consulting Provider Notified: Yes Consult to Specialist Group: Gastroenterology Person Notified: ELEN Date Notified: 04/20/16 Time Notified: 08:30 09/11/16 15:22 Consult to Anesthesiology [CONS] Routine Consulting Provider: Reason for Anesthesiology: Pre-op Clearance 09/12/16 13:58 Consult to Anesthesiology [CONS] Routine Consulting Provider: Reason for Anesthesiology: Pre-op Clearance Consult Comment: For laparoscopic cholecystectomy Discharging clinician: Jimmy Fajardo MD Expected date of discharge: 09/15/16
[2016-09-15] MEDS: ENOXAPARIN 40 MG/0.4 ML SYRINGE SUBCUT SCH (09:05)
[2016-09-15] MEDS: DOCUSATE SODIUM 100 MG CAPSULE PO SCH (09:06)
[2016-09-15] MEDS: PANTOPRAZOLE 40 MG TABLET PO SCH (09:06)
[2016-09-15] MEDS: hydroCHLOROthiazide 12.5 MG CAPSULE PO SCH (09:06)
[2016-09-15] MEDS: LOSARTAN 50 MG TABLET PO SCH (09:06)
[2016-09-15] MEDS: METOPROLOL SUCCINATE XL 50 MG TABLET PO SCH (09:06)
[2016-09-15 13:11] VITALS: BP 131/97
--- NOTE | 2016-09-21 13:29 | Physician Query Form ---
CLICK EDIT DOCUMENT TO SELECT QUERY ANSWER --> OK --> SIGN Franci Dang RN, CCDS Certified Clinical Interim Controller W) [phone] (f) [phone] [email or web address]: Make your selection(s) from the choices in EACH section by typing an "x" and enter comments in the comment section. Please use your independent medical judgment in providing your response. This request does not imply that any particular answer is desired or expected. CLINICAL INDICATORS: (Providers should not edit this section) The medical record indicates that the patient was admitted with cholecystitis, renal insufficiency, creatinine of 1.40# on the that increased to 1.90 on the and the patient was on IVF's. Clarify which of the following most accurately represents the patient's renal status: ( ) Acute kidney injury (non-traumatic) ( ) Acute renal failure ( ) Acute renal failure with underlying Chronic Kidney Disease (CKD) - please provide stage below ( ) Acute renal failure with necrosis ( ) tubular ( ) medullary ( ) cortical ( ) Other, please specify: (x ) Clinically unable to determine Chronic Kidney Disease Stages Source: National Kid[employer] Foundation ( ) Stage I (eGFR > or = 90) ( ) Stage II (eGFR 60 - 89) ( ) Stage III (eGFR 30 - 59) ( ) Stage IV (eGFR 15 - 29) ( ) Stage V (eGFR < 15 or dialysis) COMMENTS: Use of terms such as suspected, likely, or probable (associated with a specific diagnosis that is being evaluated, monitored, or treated as if it exists) are acceptable and can be restated in the discharge summary if not ruled out. MTDD
== END 2016-09-15 12:56 | disposition home or self-care (01) | DRG 418 ==
LOC: N.ED 12:17 → N.EDINP 15:00 → N.2E 15:54
PROVIDERS: ADMIT Family Medicine; ATTEND Family Medicine
PROC: ERCPWSP (ICD-10-PCS; 2016-09-12 12:50)
PROC: LAPCHOL (2016-09-13 12:20)